=== PATIENT | female | born 1975 | race Hispanic/Latino ===

== ENCOUNTER 2017-07-22 16:09 | Emergency (ER) | payer SELFPAY ==
--- NOTE | 2017-07-23 01:19 | Emergency Department Report ---
ED Lower Extremity HPI - General Chief Complaint: Extremity Injury, Lower Stated Complaint: LEFT KNEE INJURY Time Seen by Provider: 07/22/17 22:53 Source: patient, family Mode of arrival: Ambulatory Limitations: No Limitations - History of Present Illness Initial Comments: This is a 42-year-old female here report that she twisted her left knee last night and she is having left knee pain at 6 out of 10 with achy sharp. Pain exacerbated by movement and alleviated with ibuprofen and Aleve but she said the pain is not alleviated completely and she is having a problem walk-in. Positive for swelling. Pain is located in anterior knee. Negative fever, negative radiation of pain distally or proximally. Denies any history of similar problems. Denies fall. Denies headache. Denies any swelling to her legs. Pain is localized to the left knee. Positive history for hepatitis C MD Complaint: knee injury (left knee) Onset/Timin -: days(s) Injury: Knee: Left (left knee pain, swelling from injury) Type of Injury: inversion Place: home Severity: moderate Severity scale (0 -10): 6 Improves With: NSAID (but not completely) Worsens With: weight bearing, movement, palpation Context: other (she reports that she twisted her knee) Other Symptoms: other (swelling and) Associated Symptoms: swelling, unable to bear weight. denies: numbness, tingling Treatments Prior to Arrival: NSAIDS - Related Data Previous Rx's Medication Instructions Recorded Last Taken Type Ibuprofen [Motrin] 600 mg PO Q8H PRN #12 tablet 07/23/17 Unknown Rx Allergies Allergy/AdvReac Type Severity Reaction Status Date / Time promethazine [From Phenergan] Allergy Dizziness Verified 07/22/17 16:14 ED Review of Systems ROS: Stated complaint: LEFT KNEE INJURY Other details as noted in HPI Constitutional: denies: chills, fever Eyes: denies: eye pain ENT: denies: ear pain, throat pain Respiratory: denies: cough, orthopnea, shortness of breath, SOB with exertion, SOB at rest, stridor, wheezing Cardiovascular: denies: chest pain, palpitations, edema, syncope Gastrointestinal: denies: abdominal pain, nausea, vomiting, diarrhea Musculoskeletal: joint swelling, arthralgia. denies: back pain Skin: denies: rash, lesions Neurological: abnormal gait (due to left knee injury). denies: headache, weakness, numbness, paresthesias, confusion, vertigo ED Past Medical Hx - Past Medical History Previous Medical History?: Yes Additional medical history: hep c - Surgical History Past Surgical History?: No - Family History Family history: hypertension - Social History Smoking Status: Current Every Day Smoker Substance Use Type: None Other Social History: Patient is single and lives with her family - Medications Home Medications: Home Medications Medication Instructions Recorded Confirmed Last Taken Type Ibuprofen [Motrin] 600 mg PO Q8H PRN #12 tablet 07/23/17 Unknown Rx ED Physical Exam - General Limitations: No Limitations General appearance: alert, in no apparent distress - Head Head exam: Present: atraumatic, normocephalic, normal inspection - Eye Eye exam: Present: normal appearance, PERRL, EOMI. Absent: scleral icterus Pupils: Present: normal accommodation - ENT ENT exam: Present: normal exam, normal orophraynx, mucous membranes moist - Neck Neck exam: Present: normal inspection, full ROM, other (no C-spine tenderness). Absent: tenderness, lymphadenopathy - Respiratory Respiratory exam: Present: normal lung sounds bilaterally. Absent: respiratory distress, chest wall tenderness - Cardiovascular Cardiovascular Exam: Present: regular rate, normal rhythm, normal heart sounds. Absent: systolic murmur, diastolic murmur - GI/Abdominal GI/Abdominal exam: Present: soft, normal bowel sounds. Absent: distended, tenderness, guarding, rebound, rigid - Extremities Exam Extremities exam: Present: normal inspection, tenderness (left anterior knee), normal capillary refill, joint swelling (left anterior knee), other (unable to weight-bear due to pain to left anterior knee). Absent: full ROM (limited range of motion to left knee), pedal edema, calf tenderness - Expanded Lower Extremity Exam Left Hip exam: Present: normal inspection, full ROM, pelvic stability. Absent: tenderness, swelling, abrasion, laceration, ecchymosis, deformity, crepidus, dislocation, erythema, external rotation, internal rotation, shortening Upper Leg exam: Present: normal inspection, full ROM. Absent: tenderness, swelling, abrasion, laceration, ecchymosis, deformity, crepidus, dislocation, erythema Knee exam: Present: tenderness (Beth[place]. Knee), swelling (left anterior knee), effusion, pain w/ pronation/supination. Absent: normal inspection, full ROM ( Limited range of motion left anterior knee patient able to flex but pain with extension), abrasion, laceration, ecchymosis, deformity, crepidus, dislocation, erythema, full knee extension Lower Leg exam: Present: normal inspection, full ROM. Absent: tenderness, swelling, abrasion, laceration, ecchymosis, deformity, crepidus, dislocation, erythema, palpable cord, Nasreen's sign Ankle exam: Present: normal inspection, full ROM. Absent: tenderness, swelling , abrasion, laceration, ecchymosis, deformity, crepidus, dislocation, erythema Foot/Toe exam: Present: normal inspection, full ROM. Absent: tenderness, swelling, abrasion, laceration, ecchymosis, deformity, crepidus, dislocation, erythema, amputation, puncture wound, foreign body, calcaneal tenderness, tenderness at base of 5th metatarsal, nail avulsion, subungual hematoma Neuro vascular tendon exam: Present: no vascular compromise, significant pain with passive ROM of distal joint (left knee). Absent: pulse deficit, abnormal cap refill, motor deficit, sensory deficit, tendon deficit, extremity cold to touch, pallor, abnormal 2-point discrimination, decreased fine/light touch, foot drop, peroneal nerve deficit Gait: Positive: antalgic - Back Exam Back exam: Present: normal inspection, full ROM. Absent: tenderness, paraspinal tenderness, vertebral tenderness, rash noted - Neurological Exam Neurological exam: Present: alert, oriented X3, abnormal gait (patient unable to weight-bear left lower extremity due to left knee pain and injury.) - Psychiatric Psychiatric exam: Present: normal affect, normal mood - Skin Skin exam: Present: warm, dry, intact, normal color. Absent: rash ED Course Vital Signs 07/22/17 07/23/17 07/23/17 16:14 01:24 03:11 Temperature 98.6 F Pulse Rate 72 74 Respiratory 16 18 18 Rate Blood Pressure 140/88 Blood Pressure 138/83 [Left] O2 Sat by Pulse 99 98 Oximetry - Reevaluation(s) Reevaluation #1: 07/23/17 04:20 Patient given Motrin 800 mg for pain in emergency room. Pain is down to 2 out of 10 but she complained of pain again. She'll be given pain medication when Reevaluation #2: 07/23/17 04:41 Patient given Vanderbilt 7.5/325 mg by mouth 1 tablet and discharged home with her family. - Orthopedic Splinting/Casting Injury #1 Side: left Lower Extremity Injury Location: knee Lower Extremity Immobilizer: knee immobilizer Other Orthopedic Equipment: crutches Additional Comments: Patient with good color, sensation, movement and temperature to both feet with + 2 pulses. Status post knee immobilizer to left knee ED Lower Extremity MDM - Radiology Data Radiology results: report reviewed X-ray of left knee 2 views reveal patient with no acute fracture or dislocation. Moderate volume suprapatellar effusion. Radiologist suggests MRI but patient will do this an outpatient with Dr. Vásquez was orthopedic doctor. X -ray report is referring to right knee as it here was made but radiologist read left knee exam. Addendum to come. I spoke a radiologist about that situation. - Medical Decision Making ED Course Diagnosis 1: Left Knee sprain due to injury- Knee immobilizer and crutches. Good CSMT. Better after splint 2:left Knee pain/arthralgia: TMotrin 800 mg x1 the percocet 7.5/325mg po x1 better with pain meds and splinting 3: left Knee effusion-referral to Orthopedist X-ray of left knee 2 views reveal patient with no acute fracture or dislocation. Moderate volume suprapatellar effusion. Radiologist suggests MRI but patient will do this an outpatient with Dr. Vásquez was orthopedic doctor. X -ray report is referring to right knee as it here was made but radiologist read left knee exam. Addendum to come. I spoke a radiologist about that situation. PT Educated on xray results, meds, diagnosis, labs and outpatient followup. referral to orthopedist Instructions on PCP follow up Instructed on crutches use Knee immobilizer and NWB to LLE until see by orthopedist Vital signs are stable and she is afebrile prior to discharge. Patient discharged home in stable condition with family from emergency room with prescription for Motrin - Differential Diagnosis knee fracture, knee sprain, knee effusion, MSK knee Critical care attestation.: If time is entered above; I have spent that time in minutes in the direct care of this critically ill patient, excluding procedure time. ED Disposition Clinical Impression: Effusion, left knee, Arthralgia of left knee Sprain of left knee Qualifiers: Encounter type: initial encounter Involved ligament of knee: other ligament Qualified Code(s): S83.8X2A - Sprain of other specified parts of left knee, initial encounter Left knee injury Qualifiers: Encounter type: initial encounter Qualified Code(s): S89.92XA - Unspecified injury of left lower leg, initial encounter Disposition: TO HOME OR SELFCARE Is pt being admited?: No Does the pt Need Aspirin: No Condition: Stable Instructions: Knee Sprain (ED), Crutch Instructions (ED), Knee Effusion (ED), Arthralgia (ED), Knee Immobilizer (ED) Additional Instructions: Please follow-up with orthopedic doctor as instructed and 3-5 days regarding left knee sprain. X-ray shows that you have a fluid collection in the left knee and he will probably need to have this drained by orthopedic doctor Take anti-inflammatory as instructed. Follow rice Therapy Keep the immobilizer on until seen by orthopedic doctor Prescriptions: Ibuprofen [Motrin] 600 mg PO Q8H PRN #12 tablet PRN Reason: Pain Referrals: PRIMARY MD TIFFANIE [Primary Care Provider] - 07/25/17 NOAM VÁSQUEZ MD [Staff Physician] - 07/25/17 [facility] [Outside] - 07/25/17 Forms: Work/School Release Form(ED)
[2017-07-23] MEDS ORDERED: MOTRIN PO ONE (01:20)
[2017-07-23 03:14] VITALS: BP 138/83
[2017-07-23] MEDS ORDERED: NORCO 7.5/325 PO ONE (04:24)
--- NOTE | 2017-07-23 04:51 | XRay Report ---
FINAL REPORT EXAM: XR KNEE 3V RT HISTORY: Twisted rt knee now with pain TECHNIQUE: Two views of the knee: AP and lateral projections. Note: The knee radiographs are labeled LEFT by the technologist, and the examination is in a RIGHT knee folder and the history states right knee. Correlation with physical examination is necessary as the exam is read at a remote location. PRIORS: None. FINDINGS: There is no identified acute fracture or dislocation. Moderate volume suprapatellar joint effusion is noted. No significant degenerative change. IMPRESSION: No acute fracture identified. Moderate volume suprapatellar effusion. If concern for internal derangement, dedicated MRI can further evaluate. Note: The knee radiographs are labeled LEFT by the technologist markers, and the examination is in a RIGHT knee folder and the history states right knee. Correlation with physical examination is necessary as the exam is read at a remote location.
== END 2017-07-23 04:50 | disposition home or self-care (01) ==
LOC: ED 16:09
DX: S83.8X2A Sprain of other specified parts of left knee, initial encounter (principal); F17.200 Nicotine dependence, unspecified, uncomplicated; Z86.19 Personal history of other infectious and parasitic diseases; Z88.8 Allergy status to other drugs, medicaments and biological substances; X50.1XXA Overexertion from prolonged static or awkward postures, initial encounter; Y93.89 Activity, other specified; Y99.8 Other external cause status; Y92.009 Unspecified place in unspecified non-institutional (private) residence as the place of occurrence of the external cause